=== PATIENT | female | born 1940 | race Caucasian/White ===

== ENCOUNTER 2019-03-28 19:13 | Emergency (ER) | payer OTHER ==
[~2019-03-28] VITALS: Ht 162.6 cm; Wt 90.7 kg
[~2019-03-28 19:13] MED LIST: ATENOLOL25 MG PO; SYNTHROID88 MCG; TENORMIN25 MG
[2019-03-28] MEDS ORDERED: LABETALOL HCL200 MG (20:39)
[2019-03-28] MEDS ORDERED: NASAL MIST126 ML (20:39)
[2019-03-28] MEDS ORDERED: NIFEDIPINE20 MG (20:40)
== END 2019-03-28 22:01 | disposition home or self-care (01) ==
LOC: ER 19:13
DX: M77.32 Calcaneal spur, left foot (principal); M19.072 Primary osteoarthritis, left ankle and foot; M47.899 Other spondylosis, site unspecified; M79.672 Pain in left foot

== ENCOUNTER → 2019-08-03 06:00 | Outpatient (CLI) | payer OTHER ==
[~2019-08-03 06:00] MED LIST changes: +LABETALOL HCL200 MG; +MICROZIDE12.5 MG PO; +NASAL MIST126 ML; +NIFEDIPINE20 MG; +XELPROS2.5 ML OP
== END | disposition home or self-care (01) ==
LOC: LAB 06:00 → ADM 14:00 → CIR.AMB 08-10 14:00 → EDSTATUS 08-10 14:00
DX: N81.11 Cystocele, midline (principal); N81.6 Rectocele; N81.5 Vaginal enterocele

== ENCOUNTER 2019-12-14 05:55 | Day surgery (SDC) | payer OTHER ==
[2019-12-14] MEDS ORDERED: MACROBID 100 M100 MG PO (10:52)
[2019-12-14] MEDS ORDERED: ULTRACET PO (10:52)
== END 2019-12-14 13:10 | disposition home or self-care (01) ==
LOC: CIR.AMB 05:55 → ADM 09:30 → CIR.AMB 11:15
PROVIDERS: ATTEND Obstetrics & Gynecology Gynecology
DX: N81.3 Complete uterovaginal prolapse (principal); Z20.828 Contact with and (suspected) exposure to other viral communicable diseases

== ENCOUNTER 2020-11-21 11:15 | Inpatient (IN) | payer OTHER ==
[~2020-11-21] VITALS: Ht 162.6 cm; Wt 92.5 kg
[~2020-11-21 11:15] MED LIST changes: +MACROBID 100 M100 MG PO; +ULTRACET PO
[2020-11-21] MEDS ORDERED: ADALAT CC60 MG PO (13:50)
[2020-11-29] MEDS ORDERED: LATANOPROST2.5 ML (08:09)
[2020-11-30] MEDS ORDERED: DUI500 PO (12:30)
[2020-11-30] MEDS ORDERED: PERCOCET 5-3251 EACH PO (12:30)
[2020-11-30] MEDS ORDERED: ELIQUIS2.5 MG PO (12:30)
[2020-12-01] MEDS ORDERED: PERCOCET 5-3251 EACH PO (07:24)
[2020-12-06] MEDS ORDERED: TRAMADOL HCL50 MG PO (11:39)
[2020-12-06] MEDS ORDERED: SYNTHROID88 MCG PO (11:39)
[2020-12-06] MEDS ORDERED: INTEGRA F CAPS1 EACH PO (11:39)
[2020-12-06] MEDS ORDERED: LABETALOL HCL200 MG PO (11:39)
[2020-12-06] MEDS ORDERED: Neurin-Sl Tablet Sl SL (11:39)
[2020-12-06] MEDS ORDERED: ELIQUIS5 MG PO (11:39)
[2020-12-06] MEDS ORDERED: ADALAT CC60 MG PO (11:39)
[2020-12-06] MEDS ORDERED: B Complex CAPSULE PO (11:39)
[2020-12-06] MEDS ORDERED: HYDRODIURIL12.5 MG PO (11:39)
[2020-12-06] MEDS ORDERED: CEFDINIR300 MG PO (11:39)
== END 2020-12-06 17:33 | DRG 469 ==
LOC: O/R 11-28 05:15 → SURH 11-28 10:15
PROVIDERS: ADMIT Orthopaedic Surgery; ATTEND Orthopaedic Surgery
PROC: 3E0F7SF Introduction of Other Gas into Respiratory Tract, Via Natural or Artificial Opening (ICD-10-PCS; 2020-11-28)
PROC: 0SRC0J9 Replacement of Right Knee Joint with Synthetic Substitute, Cemented, Open Approach (ICD-10-PCS; principal; 2020-11-28 10:15)
PROC: 4A12X4Z Monitoring of Cardiac Electrical Activity, External Approach (ICD-10-PCS; 2020-12-01)
PROC: 4A033R1 Measurement of Arterial Saturation, Peripheral, Percutaneous Approach (ICD-10-PCS; 2020-12-01)
PROC: 3E0F7SF Introduction of Other Gas into Respiratory Tract, Via Natural or Artificial Opening (ICD-10-PCS; 2020-12-01)
PROC: B24BZZZ Ultrasonography of Heart with Aorta (ICD-10-PCS; 2020-12-01)
PROC: B54DZZZ Ultrasonography of Bilateral Lower Extremity Veins (ICD-10-PCS; 2020-12-01)
PROC: CB121ZZ Planar Nuclear Medicine Imaging of Lungs and Bronchi using Technetium 99m (Tc-99m) (ICD-10-PCS; 2020-12-05)
DX: M17.11 Unilateral primary osteoarthritis, right knee (principal); J18.9 Pneumonia, unspecified organism; I26.99 Other pulmonary embolism without acute cor pulmonale; D62 Acute posthemorrhagic anemia; M22.11 Recurrent subluxation of patella, right knee; E03.8 Other specified hypothyroidism; Z20.822 Contact with and (suspected) exposure to COVID-19; I13.10 Hypertensive heart and chronic kidney disease without heart failure, with stage 1 through stage 4 chronic kidney disease, or unspecified chronic kidney disease; N18.31 Chronic kidney disease, stage 3a

== ENCOUNTER 2025-05-18 07:41 | Outpatient (CLI) | payer OTHER ==
[~2025-05-18 07:41] MED LIST changes: +ADALAT CC60 MG PO; +B Complex CAPSULE PO; +CEFDINIR300 MG PO; +DUI500 PO; +ELIQUIS2.5 MG PO; +ELIQUIS5 MG PO; +HYDRODIURIL12.5 MG PO; +INTEGRA F CAPS1 EACH PO; +LABETALOL HCL200 MG PO; +LATANOPROST2.5 ML; +Neurin-Sl Tablet Sl SL; +PERCOCET 5-3251 EACH PO; +SYNTHROID88 MCG PO; +TRAMADOL HCL50 MG PO
[2025-05-18 08:27] LABS: BASO % 0.5 % (0.1-1.2); EOS # 0.23 (0.04-0.54); EOS % 2.3 % (0.7-7.0); LYMPH # 2.74 (1.18-3.74); LYMPH % 27.5 % (19.3-53.1); MEAN PLATELET VOLUME 9.30 fl (9.4-12.4); MONO # 0.93 (0.24-0.82); MONO % 9.3 % (4.7-12.5); NEUT # 5.97 (1.56-6.13); NEUT % 60.1 % (34.0-71.1); RED CELL DISTRIBUTION WIDTH 13.5 % (11.6-14.4)
[2025-05-18 09:20] LABS: % SATURACION 21.2 % (15-50); ALT/SGPT 28.0 U/L (12-78); AST/SGOT 18.0 U/L (15-37); BILIRUBIN TOTAL 0.39 mg/dL (0.3-1.2); BUN CREA RATIO 15.0 (7.0-25.0); CREATININE SERUM 1.42 mg/dL (0.55-1.02); FE 69.0 ug/dl (50-170); GFR 35.07; GLOBULINA 3.9 G/DL (2.4-3.5); GLUCOSE FASTING 93.0 mg/dL (65-100); OSMOLALITY SERUM 284.0 MOSM/KG (275-295)
[2025-05-18 10:27] LABS: FOLIC ACID > 20.00 ng/ml (4.78-20)
[2025-05-21 14:08] LABS: ERYTHROPOIETIN 4.8 mIU/mL (2.6-18.5)
[2025-05-23 14:06] LABS: PARIETAL CELL ANTIBODIES 2.2 Units (0.0-20.0)
== END 2025-05-18 07:57 | disposition home or self-care (01) ==
LOC: LAB 07:41
PROVIDERS: ATTEND Internal Medicine Hematology & Oncology
DX: D51.1 Vitamin B12 deficiency anemia due to selective vitamin B12 malabsorption with proteinuria (principal); D59.9 Acquired hemolytic anemia, unspecified; D63.1 Anemia in chronic kidney disease; N18.31 Chronic kidney disease, stage 3a; I10 Essential (primary) hypertension; B96.0 Mycoplasma pneumoniae [M. pneumoniae] as the cause of diseases classified elsewhere; E55.9 Vitamin D deficiency, unspecified; D50.8 Other iron deficiency anemias; R74.02 Elevation of levels of lactic acid dehydrogenase [LDH]; K76.89 Other specified diseases of liver; D51.3 Other dietary vitamin B12 deficiency anemia